=== PATIENT | male | born 1980 | race Caucasian/White ===

== ENCOUNTER 2018-02-20 15:34 | Emergency (ER) | payer OTHER ==
--- NOTE | 2018-02-20 15:41 | C.PDOC ---
History Of Present Illness L CALF/ ACHILLES PAIN ONSET [employer]MENT OVERHA[employer]. "I THINK I TORE MY TENDON", ONSET WHILE TRYING TO JUMP UP WHILE PLAYING BASKETBALL. "FEELS LIKE SOMEONE HIT ME IN THE LEG". CO PAIN WHEN POINTS L FOOT. DENIES DIRECT TRAUMA. +AMBUL WO DIFF. EXAM MILD DIST NONTOXIC EXT NO DEFORM. NO CALF TEND, SWELLING. +TEND POST MID LOWER LEG ABOVE ACHILLES TENDON. L FOOT FULL FLEX EXTENSION WO DIFF. SKIN INTACT GOOD PERFUSION REMAIDNER NEG Time Seen by Provider: 02/20/18 15:41 Chief Complaint (Nursing): Lower Extremity Problem/Injury History Per: Patient History/Exam Limitations: no limitations Onset/Duration Of Symptoms: Mins, Other (Prior to arrival ) Current Symptoms Are (Timing): Still Present - Knee Description Of Injury: Other (Trying to jump up while playing basketball) Past Medical History Reviewed: Historical Data, Nursing Documentation, Vital Signs Vital Signs: Last Vital Signs Temp 97.5 F L 02/20/18 15:37 Pulse 85 02/20/18 17:20 Resp 16 02/20/18 17:20 BP 135/86 02/20/18 17:20 Pulse Ox 100 02/20/18 17:38 - Medical History PMH: No Chronic Diseases Surgical History: No Surg Hx - [facility] Procedures IRRIGATION OF EAR (03/10/14) Family History: States: No Known Family Hx - Social History Hx Tobacco Use: No Hx Alcohol Use: No Hx Substance Use: No Review Of Systems Except As Marked, All Systems Reviewed And Found Negative. Musculoskeletal: Positive for: Other (Left calf/achilles pain ) Physical Exam - Physical Exam Appears: Non-toxic, Other (Mild distress) Skin: Normal Color, Warm Head: Atraumatic Eye(s): bilateral: Normal Inspection Neck: Supple Cardiovascular: Rhythm Regular Respiratory: Other (NARD) Extremity: Tenderness (Tenderness to posterior mid lower leg above achilles tendon ), No Calf Tenderness, No Deformity (Left achilles ), No Swelling, Other (Left foot full flex extension w/o difficulty, skin intact with good perfusion ) Neurological/Psych: Oriented x3, Normal Speech Gait: Other (ambulatory w/o difficulty) ED Course And Treatment O2 Sat by Pulse Oximetry: 100 (RA) Pulse Ox Interpretation: Normal Progress - Re-Evaluation Re-evaluation Note: 02/20/18 16:11 D/W PODIATRY RESIDENT WILL EVAL IN ER 02/20/18 16:11 PT REFUSING XRAY 02/20/18 16:57 SP EVAL PODIATRY RESIDENT. OUTPT FU, POST SPLINT PLACED 02/20/18 17:00 RX FOR OUTPT MRI GIVEN BY RESIDENT TO PT 02/20/18 17:06 Medical Decision Making Medical Decision Making: Plan: Toradol 60mg IM Pt referred to podiatry. Disposition Counseled Patient/Family Regarding: Diagnosis, Need For Followup, Rx Given - Disposition Referrals: [facility] [Outside] [facility] [Outside] Idalmis Espinoza DPM [Staff Provider] - Disposition: HOME/ ROUTINE Disposition Time: 16:58 Condition: IMPROVED Prescriptions: Ibuprofen [Motrin] 600 mg PO Q6 #30 tab oxyCODONE/Acetaminophen [Percocet 5/325 mg Tab] 1 ea PO QID #8 tab Instructions: Lower Extremity Muscle Strain (DC) Forms: [facility] (Burkinan), Work Excuse - Clinical Impression Clinical Impression: Gastrocnemius muscle strain - Scribe Statement The provider has reviewed the documentation as recorded by the Scribe (Zayra Kelly) Provider Attestation: All medical record entries made by the Scribe were at my direction and personally dictated by me. I have reviewed the chart and agree that the record accurately reflects my personal performance of the history, physical exam, medical decision making, and the department course for this patient. I have also personally directed, reviewed, and agree with the discharge instructions and disposition.
[2018-02-20 16:02] VITALS: TEMP 97.5; O2SAT 100
[2018-02-20 17:21] VITALS: BP 135/86; PULSE 85; RESP 16
--- NOTE | 2018-02-20 17:37 | CP.PCM.CON ---
History of Present Illness - History of Present Illness History of Present Illness: Podiatry Consult Note for Dr. Espinoza 38M seen in ED complaining of pain to the back of his left calf and achilles tendon after jumping during a game of basketball and feeling a pop in the area of his current pain. Patient described the injury as if someone hit him in the back of the leg. Patient states that he is able to walk on the leg with pain. Denies any tingling, numbness or parasthesias. Denies any further pedal or lower extremity complaints. Denies any recent N/V/F/C/CP/SOB/D. Per nursing, patient refused xray evaluation PMHx: Denies Meds: Denies All: NKDA PSH: Tendon repair of right knee FHx: Noncontributory SHx: Denies tobacco, alcohol or drug use. Works for [employer] in [facility] Review of Systems - Review of Systems All systems: reviewed and no additional remarkable complaints except Review of Systems: as per HPI Past Patient History - Past Social History Smoking Status: Never Smoked - PSYCHIATRIC Hx Substance Use: No Meds Home Medications: Home Medication List Medication Instructions Recorded Confirmed Type Ibuprofen [Motrin] 600 mg PO Q6 #30 tab 02/20/18 Rx oxyCODONE/Acetaminophen [Percocet 1 ea PO QID #8 tab 02/20/18 Rx 5/325 mg Tab] Allergies/Adverse Reactions: Allergies Allergy/AdvReac Type Severity Reaction Status Date / Time No Known Allergies Allergy Verified 02/20/18 15:37 Physical Exam - Constitutional Appears: Well, Non-toxic, No Acute Distress - Head Exam Head Exam: ATRAUMATIC, NORMOCEPHALIC - Eye Exam Eye Exam: EOMI, PERRL Pupil Exam: NORMAL ACCOMODATION, PERRL - Neck Exam Neck exam: Positive for: Full Rom. Negative for: Tenderness - Respiratory Exam Respiratory Exam: NORMAL BREATHING PATTERN. absent: Respiratory Distress - GI/Abdominal Exam GI & Abdominal Exam: Soft. absent: Tenderness - Extremities Exam Extremities exam: Positive for: calf tenderness, normal capillary refill, tenderness Additional comments: LLE focused exam: Vasc: DP/PT pulses fully palpable 2/4 b/l. Skin temperature warm to warm from proximal to distal. CFT < 3 seconds to all digits b/l. Minimal edema noted to positerior heel Neuro: Epicritic and protective sensation grossly intact b/l. Derm: No open lesions, wounds, maceraiton, xerosis, abnormal pigmentation or abnormal growths noted MSK: POP to midsubstance of achilles tendon as well as at level of gastrocnemius musculotendinous junction. Palpable dell noted to achilles tendon. Patient able to plantarflex left foot 4/5 MMT strength. Positive Hill test - Back Exam Back exam: absent: CVA tenderness (L), CVA tenderness (R) - Neurological Exam Neurological exam: Alert, Oriented x3 - Psychiatric Exam Psychiatric exam: Normal Affect, Normal Mood Results - Vital Signs Recent Vital Signs: Last Vital Signs Temp 97.5 F L 02/20/18 15:37 Pulse 85 02/20/18 17:20 Resp 16 02/20/18 17:20 BP 135/86 02/20/18 17:20 Pulse Ox 100 02/20/18 17:22 Assessment & Plan - Assessment and Plan (Free Text) Assessment: 38M seen in ED for probable partial vs full achilles tendon rupture with likely gastroc-soleus muscular injury as well Plan: Patient seen and evaluated Charts, labs, vitals reviewed Plan discussed with attending Dr. Espinoza Patient's leg dressed in posterior splint Patient instructed to keep dressing C/D/I Patient to practice RICE therapy at home and remain NWB to left leg Rx MRI left leg Rx Percocet Patient to call Dr. Espinoza at her [place] office on Thursday to schedule follow up appointment - Date & Time Date: 02/20/18 Time: 17:44
== END 2018-02-20 17:20 | disposition home or self-care (01) ==
LOC: C.ER 15:34
DX: S86.912A Strain of unspecified muscle(s) and tendon(s) at lower leg level, left leg, initial encounter (principal); X50.0XXA Overexertion from strenuous movement or load, initial encounter; Y93.67 Activity, basketball; Y92.39 Other specified sports and athletic area as the place of occurrence of the external cause